=== PATIENT | female | born 1970 | race Caucasian/White ===

== ENCOUNTER 2023-04-07 20:41 | Emergency (ER) | payer BC ==
[~2023-04-07] VITALS: Ht 175.3 cm; Wt 136.1 kg
[2023-04-07 21:11] VITALS: BP_SYST 144; PULSE 110; RESP 16; TEMP 98.7; O2SAT 96
[2023-04-07] MEDS ORDERED: ACETAMINOPHEN 500 MG TABLET PO ONE ×2 (21:30→22:30)
[2023-04-07] MEDS ORDERED: KETOROLAC TROMETHAMINE 15 MG VIAL IM ONE (22:30)
[2023-04-08 04:04] VITALS: BP_SYST 134; PULSE 84; RESP 18; TEMP 98.3; O2SAT 97
== END 2023-04-08 06:03 | disposition home or self-care (01) ==
LOC: SED 20:41
DX: M54.50 Low back pain, unspecified (principal); M54.2 Cervicalgia; R51.9 Headache, unspecified; Z88.0 Allergy status to penicillin; Z79.899 Other long term (current) drug therapy
CPT/HCPCS: 99285; 70450; 72125; 72128; 72131; 96372; 76376; J1885